=== PATIENT | female | born 1985 | race Caucasian/White ===

== ENCOUNTER 2019-03-08 19:27 | Emergency (ER) | payer OTHER ==
[~2019-03-08] VITALS: Ht 170.2 cm; Wt 57.0 kg
[~2019-03-08 19:27] MED LIST: ACETAMINOPHEN; AMLO-147 PO; ATEN-138 PO; CYCL-117 PO; FLO1 PO; GABA600T15 PO; GABAPENTIN; HYDR-3612 PO; HYDROCODONE; INSU100C; LISI10TA2 PO; LORA10CA PO; METO10TA92 PO; METO5TAB2; METOCLOPRAMIDE; SULF1TAB80 PO; neurontin PO
[2019-03-08 19:33] VITALS: Ht 170.2 cm; Wt 57.0 kg
[2019-03-08] MEDS ORDERED: ONDANSETRON 4 MG INJ IV STA (20:19)
--- NOTE | 2019-03-08 20:28 | ERD ---
ER Documentation Chief Complaint Chief Complaint TYPE 1 DIABETIC C/O N/V AND HIGH BS (IN TRIAGE ITS 186) HPI 34-year-old female type I diabetic on insulin pump presenting with nausea vomiting and lightheadedness for the past 2 days patient states this is how she feels when she gets DKA. Patient has bilateral greater toe ulcers that she is on Augmentin for no fever, no chills, no dysuria, no chest pain or shortness of breath. Has been compliant with her insulin pump. Patient states she had DKA 2 weeks ago and was admitted at outside hospital. ROS All systems reviewed and are negative except as per history of present illness. Medications Home Meds Reported Medications Metoclopramide Hcl (Reglan) 5 Mg Tab 01/28/13 Fludrocortisone Acetate (Florinef Acetate) 0.1 Mg Tablet, PO BID 01/28/13 Amlodipine Besylate* (Amlodipine Besylate*) 10 Mg Tablet, PO DAILY 01/28/13 Gabapentin (GRALISE) 600 Mg Tab.er.24h, PO HS 01/28/13 Sulfamethoxazole-Trimethoprim* (Bactrim* SS) 1 Tab Tablet, PO DAILY 01/28/13 Hydrocodone Bit-Acetaminophen* ([place]*) 1 Tab Tab, PO BID 01/28/13 Loratadine* (Claritin*) 10 Mg Capsule, PO DAILY 01/28/13 Cyclobenzaprine Hcl (Flexeril) 10 Mg Tablet, PO HS 01/28/13 Atenolol (Tenormin) 25 Mg Tab, PO BID 01/28/13 [[place],Reglan Gabapentin,[place]] No Conflict Check 08/13/12 Lisinopril* (Lisinopril*) 10 Mg Tablet, 10 MG PO HS 07/07/12 Metoclopramide* (Reglan*) 10 Mg Tablet, 10 MG PO HS 07/07/12 [neurontin] No Conflict Check, 300 MG PO q hs 07/03/12 Insulin Lispro (Humalog) 100 U/Ml Cartridge 01/12/10 Allergies Allergies: Coded Allergies: No Known Drug Allergy (Verified Allergy, Mild, 01/28/13) PMhx/Soc History of Surgery: Yes (R calf, R great toe amputation, cody, rt eye ) Anesthesia Reaction: No Hx Neurological Disorder: No Hx Respiratory Disorders: No Hx Cardiac Disorders: No Hx Psychiatric Problems: No Hx Miscellaneous Medical Probl: Yes (dm, neuropathy, gastroporesis, glaucoma, chronic back pain ) Hx Alcohol Use: Yes Hx Substance Use: No Hx Tobacco Use: No Smoking Status: Former smoker Physical Exam Vitals Vital Signs Date Temp Pulse Resp B/P (MAP) Pulse Ox O2 O2 Flow FiO2 Time Delivery Rate 03/08/19 83 23 124/84 99 Room Air 21:44 (97) 03/08/19 92 26 105/85 97 Room Air 20:00 (92) 03/08/19 98.4 90 20 146/72 98 19:33 (96) Physical Exam Const: No acute distress Head: Atraumatic Eyes: Normal Conjunctiva ENT: Normal External Ears, Nose and Mouth. Neck: Full range of motion. No meningismus. Resp: Clear to auscultation bilaterally Cardio: Regular rate and rhythm, no murmurs Abd: Soft, non tender, non distended. Normal bowel sounds Skin: No petechiae or rashes Back: No midline or flank tenderness Ext: Bilateral great toes with superficial ulcers nonprotruding to bone. No drainage. Neur: Awake and alert Psych: Normal Mood and Affect Result Diagram: 03/08/19201403/08/192014 Results 24 hrs Laboratory Tests Test 03/08/19 19:34 03/08/19 20:15 03/08/19 20:19 Bedside Glucose 186 mg/dL White Blood Count 9.7 10^3/ul Red Blood Count 3.97 10^6/ul Hemoglobin 12.9 g/dl Hematocrit 38.6 % Mean Corpuscular Volume 97.2 fl Mean Corpuscular Hemoglobin 32.5 pg Mean Corpuscular 33.4 g/dl Hemoglobin Concent Red Cell Distribution Width 12.8 % Platelet Count 332 10^3/UL Mean Platelet Volume 9.0 fl Immature Granulocytes % 0.300 % Neutrophils % 80.6 % Lymphocytes % 11.7 % Monocytes % 4.4 % Eosinophils % 2.5 % Basophils % 0.5 % Nucleated Red Blood Cells % 0.0 /100WBC Immature Granulocytes # 0.030 10^3/ul Neutrophils # 7.8 10^3/ul Lymphocytes # 1.1 10^3/ul Monocytes # 0.4 10^3/ul Eosinophils # 0.2 10^3/ul Basophils # 0.1 10^3/ul Nucleated Red Blood Cells # 0.0 10^3/ul Sodium Level 136 mmol/L Potassium Level 3.7 mmol/L Chloride Level 104 mmol/L Carbon Dioxide Level 23 mmol/L Anion Gap 9 Blood Urea Nitrogen 11 mg/dl Creatinine 1.75 mg/dl Est Glomerular Filtrat 33 mL/min Rate mL/min Glucose Level 191 mg/dl Calcium Level 9.4 mg/dl Phosphorus Level 3.2 mg/dl Magnesium Level 2.1 mg/dl Blood Gas Specimen Source Blood venous Arterial Blood Date Drawn 03/08/2019 8:36:08 PM Arterial Blood Gas VENOUS LINE Puncture Site Ed Test N/A Venous Blood pH 7.403 Venous Blood pCO2 35.9 mmHG (Temp Corrected) Venous Blood pO2 30.7 mmHG (Temp Corrected) Venous Blood HCO3 21.9 mmol/L Venous Blood Oxygen 61.5 mmHG Saturation Venous Blood Base Excess -2.4 mmol/L Venous Blood Total Hemoglobin 12.2 g/dl Venous Blood Oxyhemoglobin 61.1 % Venous Blood Methemoglobin 0.1 % Carboxyhemoglobin 0.5 % Blood Gas Temperature 37.0 C Blood Gas Modality ROOM AIR FiO2 21.0 % Blood Gas Notified Whom MM Blood Gas Notified Time 03/08/2019 8:44:35 PM Current Medications Medications Dose Sig/Alexander Start Time Status Last (Trade) Ordered Route PRN Stop Time Admin Dose Reason Admin Sodium 570 ml @ ONCE ONCE 03/08/19 DC 03/08/19 Chloride 570 mls/hr IV 20:30 03/08/19 20:39 21:29 Ondansetron 4 mg ONCE STAT 03/08/19 DC 03/08/19 HCl (Zofran IV 20:19 03/08/19 20:39 Inj) 20:21 Morphine 4 mg ONCE STAT 03/08/19 DC 03/08/19 Sulfate IV 20:51 03/08/19 20:56 (morphine) 20:52 10 mg ONCE ONCE 03/08/19 DC 03/08/19 Metoclopramid IV 22:00 03/08/19 21:41 e HCl 22:01 (Reglan) Procedures/MDM Patient presents with abdominal pain, nausea and vomiting, has flatus , BM afebrile Patient is well appearing. Non acute abdominal exam. Low suspicion for AAA given no palpable mass . Low suspicion for mesenteric ischemia given pain not out of proportion to exam, and no major risk factors Patient PO tolerant. Serial abdominal exam without increase in abdominal pain. Given exam and history, low suspicion for acute abdominal process, such as acute cholecystitis, pancreatitis, perforated viscus, atypical appendicitis or torsion. Extensive conversation about return precautions and need for follow-up. Labs with any evidence of DKA, x-rays of bilateral feet with no evidence of osteo-. No leukocytosis. No fever. Symptoms are improved. I feel the patient is stable for discharge at this time. I have discussed results, examination findings, disposition, and the treatment plan with the pat ient (and family present) prior to discharge. Indications for emergent reevaluation and side effects of medications were discussed and any questions were answered. Patient verbalized understanding and agreement with the treatment plan. DRISS MIRANDA MD Mar 08, 2019 20:28
[2019-03-08] MEDS ORDERED: SOD CHLORIDE 0.9% 570 ML IV ONE (20:30)
[2019-03-08] MEDS ORDERED: morphine 4 MG/ML VIAL IV STA (20:51)
[2019-03-08] MEDS ORDERED: METOCLOPRAMIDE 10 MG INJ IV ONE (22:00)
[2019-03-09] MEDS ORDERED: METOCLOPRAMIDE 10 MG INJ IV ONE
[2019-03-09] MEDS ORDERED: morphine 4 MG/ML VIAL IV STA (00:28)
[2019-03-09 00:41] VITALS: BP 103/68; PULSE 86; RESP 14
== END 2019-03-09 00:43 | disposition home or self-care (01) ==
LOC: E/R 19:27
DX: R10.9 Unspecified abdominal pain (principal); E10.9 Type 1 diabetes mellitus without complications; Z79.4 Long term (current) use of insulin; Z87.891 Personal history of nicotine dependence
CPT/HCPCS: 36415; 73630; 80048; 82803; 82962; 83735; 84100; 85025; 96361; 96374; 96375; 96376; J2270; J2405; J2765; J7030; Z7502; Z7610